=== PATIENT | male | born 1960 | race Hispanic/Latino ===

== ENCOUNTER 2018-10-18 18:04 | Inpatient (IN) | payer BC ==
[2018-10-18 19:22] LABS: Urine Blood 2+ (NEG); Urine Glucose NEGATIVE (NEG); Urine Protein TRACE (NEG); Urine Specific Gravity 1.025 (1.005-1.030); Urine pH 5.5 (5.0-7.0)
[2018-10-18] MEDS ORDERED: NA CHLORIDE 0.9% 1,000 ML ONE (19:26)
[2018-10-18] MEDS ORDERED: ONDANSETRON 4 MG/2 ML VIAL ONE (19:26)
[2018-10-18] MEDS ORDERED: MORPHINE 4 MG/ML SYR ONE (19:26)
[2018-10-18 19:33] LABS: Absolute Lymphocytes (CBC) 2.1 K/uL (0.7-4.9); Absolute Monocytes 1.6 K/uL (0.1-1.3); Absolute Neutrophil 10.9 K/uL (1.8-8.0); Basophils % 0.6 % (0-1.3); Eosinophils % 1.7 % (0-4.4); Hematocrit 44.4 % (39.6-49.0); Lymphocytes % 13.8 % (15.3-44.8); MCH 30.9 pg (27.0-35.0); MCV 92.9 fL (80-100); MPV 10.5 fL (7.6-11.3); Monocytes % 10.4 % (3.3-12.3); RBC Red Blood Cell Count 4.78 M/uL (4.33-5.43)
[2018-10-18] MEDS ORDERED: PIPER/TAZO/NS 3.375gm 3.375 GM/100 ML BAG ONE (19:55)
[2018-10-18 19:57] LABS: Albumin 4.1 g/dL (3.4-5.0); Bilirubin Direct 0.1 mg/dL (0-0.2); Bilirubin Total 0.5 mg/dL (0.2-1.0); Potassium 3.8 mmol/L (3.5-5.1); Protein, Total 7.8 g/dL (6.4-8.2)
--- NOTE | 2018-10-18 20:50 | RAD REPORT ---
EXAM DESCRIPTION: CT - Abdomen Pelvis W Contrast - 10/18/2018 8:27 pm CLINICAL HISTORY: Abdominal pain/right lower quadrant pain for 2 days COMPARISON: none. TECHNIQUE: Computed axial tomography of the abdomen pelvis was obtained. 100 cc Isovue-300 was admin istered intravenously. Oral contrast was not requested which limits evaluation of bowel. All CT scans are performed using dose optimization technique as appropriate and may include automated exposure control or mA/KV adjustment according to patient size. FINDINGS: The liver, spleen, pancreas, adrenal and kidneys appear unremarkable. Small right renal cy st An appendicolith is present within the appendix. The appendix is distended. A moderate stranding with in the adjacent fat is seen. Small amount of ascites is noted. The appendix extends inferiorly from t he cecum Right inguinal hernia contains fat IMPRESSION: Appendicitis.
--- NOTE | 2018-10-18 21:12 | EDPHYS ---
Physician Documentation [facility] Name: Sunny Germain Age: 58 yrs Sex: Male : 1960 Arrival Date: 10/18/2018 Time: 18:08 Bed 27 Private MD: ED Physician Rogelio Pedroza HPI: 10/18 19:35 This 58 yrs old Male presents to ER via Ambulatory with complaints of jr8 Abdominal Pain. 19:35 The patient presents with abdominal pain right lower quadrant. Onset: The jr8 symptoms/episode began/occurred acutely, 2 day(s) ago. The symptoms do not radiate. Associated signs and symptoms: none. The symptoms are described as stabbing. Modifying factors: The symptoms are alleviated by nothing, the symptoms are aggravated by movement. Severity of pain: At its worst the pain was moderate in the emergency department the pain is unchanged. The patient has not experienced similar symptoms in the past. The patient has not recently seen a physician. Historical: - Allergies: 18:33 No Known Allergies; aj - Home Meds: 18:33 Lopressor Oral [Active]; aj - PMHx: 18:33 Hypertension; aj - PSHx: 18:33 None; aj - Immunization history:: Adult Immunizations up to date. - Social history:: Smoking status: Patient uses tobacco products, smokes one pack cigarettes per day. Patient uses alcohol, on a daily basis. - Ebola Screening: : Patient negative for fever greater than or equal to 101.5 degrees Fahrenheit, and additional compatible Ebola Virus Disease symptoms Patient denies exposure to infectious person Patient denies travel to an Ebola-affected area in the 21 days before illness onset No symptoms or risks identified at this time. ROS: 19:35 Eyes: Negative for injury, pain, redness, and discharge, ENT: Negative for injury, jr8 pain, and discharge, Neck: Negative for injury, pain, and swelling, Cardiovascular: Negative for chest pain, palpitations, and edema, Respiratory: Negative for shortness of breath, cough, wheezing, and pleuritic chest pain, Back: Negative for injury and pain, MS/Extremity: Negative for injury and deformity, Skin: Negative for injury, rash, and discoloration, Neuro: Negative for headache, weakness, numbness, tingling, and seizure. 19:35 Abdomen/GI: Positive for abdominal pain, Negative for nausea, vomiting, and diarrhea, abdominal distension, anorexia, dysphagia, hematemesis, black/tarry stool, rectal pain, rectal bleeding, bowel incontinence, flatulence. Exam: 19:35 Eyes: Pupils equal round and reactive to light, extra-ocular motions intact. Lids and jr8 lashes normal. Conjunctiva and sclera are non-icteric and not injected. Cornea within normal limits. Periorbital areas with no swelling, redness, or edema. ENT: Nares patent. No nasal discharge, no septal abnormalities noted. Tympanic membranes are normal and external auditory canals are clear. Oropharynx with no redness, swelling, or masses, exudates, or evidence of obstruction, uvula midline. Mucous membranes moist. Neck: Trachea midline, no thyromegaly or masses palpated, and no cervical lymphadenopathy. Supple, full range of motion without nuchal rigidity, or vertebral point tenderness. No Meningismus. Cardiovascular: Regular rate and rhythm with a normal S1 and S2. No gallops, murmurs, or rubs. Normal PMI, no JVD. No pulse deficits. Respiratory: Lungs have equal breath sounds bilaterally, clear to auscultation and percussion. No rales, rhonchi or wheezes noted. No increased work of breathing, no retractions or nasal flaring. Back: No spinal tenderness. No costovertebral tenderness. Full range of motion. Skin: Warm, dry with normal turgor. Normal color with no rashes, no lesions, and no evidence of cellulitis. MS/ Extremity: Pulses equal, no cyanosis. Neurovascular intact. Full, normal range of motion. Neuro: Awake and alert, GCS 15, oriented to person, place, time, and situation. Cranial nerves II-XII grossly intact. Motor strength 5/5 in all extremities. Sensory grossly intact. Cerebellar exam normal. Normal gait. 19:35 Abdomen/GI: Inspection: abdomen appears normal, Bowel sounds: active, all quadrants, Palpation: soft, in all quadrants, moderate abdominal tenderness, in the right lower quadrant, mass, is not appreciated, rebound tenderness, is appreciated in the right lower quadrant, voluntary guarding, is elicited in the right lower quadrant, involuntary guarding, is not appreciated, no appreciated organomegaly, Indicators: McBurney's point is tender, Barlow's sign is negative, Rovsing's sign is positive, Psoas sign is positive, Liver: tenderness, is not appreciated. Vital Signs: 18:33 BP 126 / 84; Pulse 84; Resp 18; Temp 98.4; Pulse Ox 98% on R/A; Weight 90.72 kg; Height aj 5 ft. 9 in. (175.26 cm); 20:19 BP 141 / 73; Pulse 80; Resp 16; Pulse Ox 97% on R/A; rv 21:55 BP 138 / 62; Pulse 97; Resp 17; Pulse Ox 97% on R/A; rv 18:33 Body Mass Index 29.53 (90.72 kg, 175.26 cm) aj MDM: 18:52 Patient medically screened. [facility] 21:06 Data reviewed: vital signs, nurses notes, lab test result(s), radiologic studies, CT jr8 scan. Data interpreted: Pulse oximetry: on room air is 97 %. Interpretation: normal. Counseling: I had a detailed discussion with the patient and/or guardian regarding: the historical points, exam findings, and any diagnostic results supporting the discharge/admit diagnosis, lab results, radiology results, the need for further work-up and treatment in the hospital. Physician consultation: Derrick Gonzalez MD was called at 21:06, was contacted at 21:07, regarding admission, to the medical/surgical unit. consult, patient's condition, would like admission per Dr. Mildred Vizcarra MD. 10/18 19:10 Order name: Urine Dipstick--Ancillary (enter results); Complete Time: 19:28 ms 10/18 19:12 Order name: Basic Metabolic Panel; Complete Time: 20:31 [facility] 10/18 19:12 Order name: CBC with Diff; Complete Time: 19:35 [facility] 10/18 19:12 Order name: Creatinine for Radiology; Complete Time: 20:31 [facility] 10/18 19:12 Order name: Hepatic Function; Complete Time: 20:31 [facility] 10/18 19:12 Order name: Lipase; Complete Time: 20:31 [facility] 10/18 19:12 Order name: IV Saline Lock; Complete Time: 19:16 [facility] 10/18 19:12 Order name: CT Abd/Pelvis - W/Contrast; Complete Time: 20:55 [facility] 10/18 21:15 Order name: CONS Physician Consult EDWA 10/18 19:12 Order name: Labs collected and sent; Complete Time: 19:16 jr8 10/18 21:14 Order name: EKG - Nurse/Tech; Complete Time: 21:38 jr8 Administered Medications: 17:20 Drug: morphine 4 mg Route: IVP; Site: right antecubital; rv 19:58 Follow up: Response: Pain is decreased rv 19:20 Drug: Zofran 4 mg Route: IVP; Site: right antecubital; rv 19:57 Follow up: Response: No adverse reaction rv 19:20 Drug: NS 0.9% 1000 ml Route: IV; Rate: 1000 ml; Site: right antecubital; rv 21:38 Follow up: IV Status: Completed infusion rv 19:57 Drug: Zosyn 3.375 grams Route: IVPB; Infused Over: 60 mins; Site: right antecubital; rv 21:38 Follow up: IV Status: Completed infusion rv 21:15 Drug: Dilaudid 1 mg Route: IVP; Site: right antecubital; rv 22:01 Follow up: Response: Pain is decreased rv Disposition: 10/19 07:25 Co-signature as Attending Physician, Rogelio Pedroza MD I agree with the assessment and kdr plan of care. Disposition: 10/18/18 21:11 Hospitalization ordered by Mildred Vizcarra for Inpatient Admission. Preliminary diagnosis is Acute appendicitis. - Bed requested for Telemetry/MedSurg (Inpatient). - Status is Inpatient Admission. rv - Condition is Stable. - Problem is new. - Symptoms have improved. UTI on Admission? No Signatures: Dispatcher [employer] EDWA Kaylene Obrien RN RN kl Myers, Amanda, RN RN aj Rittger, Kevin, MD MD kdr Roszak, Josh, PA PA jr8 Pasquale Short RN RN rv Corrections: (The following items were deleted from the chart) 10/18 21:42 21:11 Hospitalization Ordered by Mildred Vizcarra MD for Inpatient Admission. Preliminary diagnosis is Acute appendicitis. Bed requested for Telemetry/MedSurg (Inpatient). Status is Inpatient Admission. Condition is Stable. Problem is new. Symptoms have improved. UTI on Admission? No. jr8 22:33 21:42 10/18/2018 21:11 Hospitalization Ordered by Mildred Vizcarra MD for Inpatient rv Admission. Preliminary diagnosis is Acute appendicitis. Bed requested for Telemetry/MedSurg (Inpatient). Status is Inpatient Admission. Condition is Stable. Problem is new. Symptoms have improved. UTI on Admission? No. kl
--- NOTE | 2018-10-18 21:12 | ER ---
Nurse's Notes [facility] Name: Sunny Germain Age: 58 yrs Sex: Male : 1960 Arrival Date: 10/18/2018 Time: 18:08 Bed 27 Private MD: Diagnosis: Acute appendicitis Presentation: 10/18 18:32 Presenting complaint: Patient states: RLQ abdominal pain for 2 days. Transition of aj care: patient was not received from another setting of care. Onset of symptoms was October 16, 2018. Risk Assessment: Do you want to hurt yourself or someone else? Patient reports no desire to harm self or others. Initial Sepsis Screen: Does the patient meet any 2 criteria? No. Patient's initial sepsis screen is negative. Does the patient have a suspected source of infection? No. Patient's initial sepsis screen is negative. Care prior to arrival: None. 18:32 Method Of Arrival: Ambulatory 18:32 Acuity: BIANCA 3 aj Triage Assessment: 18:33 General: Appears in no apparent distress. uncomfortable, Behavior is calm, cooperative, aj appropriate for age. Pain: Complains of pain in right lower quadrant. Neuro: Level of Consciousness is awake, alert, obeys commands, Oriented to person, place, time, situation, Appropriate for age. Respiratory: Airway is patent Respiratory effort is even, unlabored, Respiratory pattern is regular, symmetrical. GI: Reports lower abdominal pain. Derm: Skin is intact, is healthy with good turgor, Skin is dusky. Historical: - Allergies: 18:33 No Known Allergies; aj - Home Meds: 18:33 Lopressor Oral [Active]; aj - PMHx: 18:33 Hypertension; aj - PSHx: 18:33 None; aj - Immunization history:: Adult Immunizations up to date. - Social history:: Smoking status: Patient uses tobacco products, smokes one pack cigarettes per day. Patient uses alcohol, on a daily basis. - Ebola Screening: : Patient negative for fever greater than or equal to 101.5 degrees Fahrenheit, and additional compatible Ebola Virus Disease symptoms Patient denies exposure to infectious person Patient denies travel to an Ebola-affected area in the 21 days before illness onset No symptoms or risks identified at this time. Screenin:56 Abuse screen: Denies threats or abuse. Denies injuries from another. Nutritional rv screening: No deficits noted. Tuberculosis screening: No symptoms or risk factors identified. Fall Risk None identified. Assessment: 18:54 General: Appears in no apparent distress. uncomfortable, Behavior is calm, cooperative. rv Pain: Complains of pain in abdomen and right lower quadrant. Neuro: Level of Consciousness is awake, alert, obeys commands, Oriented to person, place, time, situation. Cardiovascular: Capillary refill < 3 seconds. Respiratory: Airway is patent. GI: Bowel sounds present X 4 quads. Abdomen is tender to palpation in right lower quadrant. : No signs and/or symptoms were reported regarding the genitourinary system. EENT: No signs and/or symptoms were reported regarding the EENT system. Derm: Skin is intact. Musculoskeletal: No signs and/or symptoms reported regarding the musculoskeletal system. 20:19 Reassessment: patient taken to CT scan. rv 21:56 Reassessment: Patient appears in no apparent distress at this time. rv Vital Signs: 18:33 BP 126 / 84; Pulse 84; Resp 18; Temp 98.4; Pulse Ox 98% on R/A; Weight 90.72 kg; Height aj 5 ft. 9 in. (175.26 cm); 20:19 BP 141 / 73; Pulse 80; Resp 16; Pulse Ox 97% on R/A; rv 21:55 BP 138 / 62; Pulse 97; Resp 17; Pulse Ox 97% on R/A; rv 18:33 Body Mass Index 29.53 (90.72 kg, 175.26 cm) ED Course: 18:08 Patient arrived in ED. mr 18:33 Triage completed. aj 18:33 Arm band placed on left wrist. Patient placed in an exam room. aj 18:40 Inserted saline lock: 20 gauge in right forearm, using aseptic technique. Blood rv collected. 18:52 Nick North PA is PHCP. jr8 18:52 Rogelio Pedroza MD is Attending Physician. [facility] 18:56 Patient has correct armband on for positive identification. Bed in low position. Call rv light in reach. Side rails up X 1. Pulse ox on. NIBP on. 19:21 Radiology exam delayed due to lab results not completed at this time. (BUN/Creatinine). 2 19:29 Inserted saline lock: 20 gauge in right antecubital area, using aseptic technique. rv 19:31 Radiology exam delayed due to lab results not completed at this time. (BUN/Creatinine). vm2 19:56 Radiology exam delayed due to lab results not completed at this time. (BUN/Creatinine). nj 20:[address] via wheelchair. vm2 20:26 CT completed. Patient tolerated procedure well. Patient moved back from CT. nj 20:28 CT Abd/Pelvis - W/Contrast In Process Unspecified. EDMS 21:11 Mildred Vizcarra MD is Hospitalizing Provider. jr8 22:02 No provider procedures requiring assistance completed. Patient admitted, IV remains in rv place. intact. Administered Medications: 17:20 Drug: morphine 4 mg Route: IVP; Site: right antecubital; rv 19:58 Follow up: Response: Pain is decreased rv 19:20 Drug: Zofran 4 mg Route: IVP; Site: right antecubital; rv 19:57 Follow up: Response: No adverse reaction rv 19:20 Drug: NS 0.9% 1000 ml Route: IV; Rate: 1000 ml; Site: right antecubital; rv 21:38 Follow up: IV Status: Completed infusion rv 19:57 Drug: Zosyn 3.375 grams Route: IVPB; Infused Over: 60 mins; Site: right antecubital; rv 21:38 Follow up: IV Status: Completed infusion rv 21:15 Drug: Dilaudid 1 mg Route: IVP; Site: right antecubital; rv 22:01 Follow up: Response: Pain is decreased rv Outcome: 21:11 Decision to Hospitalize by Provider. jr8 22:02 Admitted to Tele accompanied by [facility], via wheelchair, room 413, with chart, Report rv called to JOI VIEIRA 22:02 Condition: stable 22:02 Instructed on the need for admit. 22:33 Patient left the ED. rv Signatures: Dispatcher [employer] EDMS Arely Hicks, RN Michaelle Yu Josh, PA PA jr8 Ward Diaz Victoria 2 Pasquale Short RN RN rv
[2018-10-18] MEDS ORDERED: HYDROMORPHONE HCL 2 MG/ML inj ONE (21:19)
[2018-10-18] MEDS ORDERED: ACETAMINOPHEN 500 MG TAB PO PRN (21:36)
[2018-10-18] MEDS ORDERED: ONDANSETRON 4 MG/2 ML VIAL IV PRN (21:36)
[2018-10-18] MEDS: NA CHLORIDE 0.9% 1,000 ML IV SCH (23:23)
[2018-10-18] MEDS ORDERED: NA CHLORIDE 0.9% 0 ML ONE (23:35)
[2018-10-18] MEDS ORDERED: CEFAZOLIN 1GM (PREMIX IV) 1 GM/50 ML BAG ONE (23:44)
[2018-10-19] MEDS: HYDROMORPHONE HCL 1 MG/ML INJ IV PRN ×2 (02:09→05:45)
[2018-10-19 04:55] VITALS: BMI 29.2
[2018-10-19] MEDS: CEFAZOLIN/NS 1gm 1 GM/50 ML BAG IVPB SCH ×2 (06:00)
[2018-10-19] MEDS ORDERED: CEFAZOLIN 1GM (PREMIX IV) 1 GM/50 ML BAG ONE (06:01)
--- NOTE | 2018-10-19 06:39 | P.HP ---
Certification for Inpatient Patient admitted to: Inpatient With expected LOS: >2 Midnights Patient will require the following post-hospital care: None Practitioner: I am a practitioner with admitting privileges, knowledge of patient current condition, hospital course, and medical plan of care. Services: Services provided to patient in accordance with Admission requirements found in Title 42 Section 412.3 of the Code of Federal Regulations Patient History Date of Service: 10/18/18 Reason for admission: Abdominal pain History of Present Illness: Patient is a 58yo who was admitted to the hospital with abdominal pain. Patient' s pain was in the right lower quadrant. Patient had guarding and rebound tenderness. This is been going on for the last 24 hr. In the ER his workup revealed appendicitis. Patient will be started on antibiotics and medically is stable for surgical intervention. He does not have any hypertension or diabetes. He has no heart disease. He is low risk for cardiopulmonary complications. Allergies No Known Allergies Allergy (Unverified 10/18/18 23:09) - Past Medical/Surgical History Has patient received pneumonia vaccine in the past: No Diabetic: No -: depression -: BPH Past Surgical History: Patient denies surgical history - Family History Father Medical History: Heart disease Mother History Unknown: Yes Notes: no medical hx - Social History Smoking Status: Current every day smoker Alcohol use: Yes CD- Drugs: No Caffeine use: Yes Place of Residence: Home Review of Systems 10-point ROS is otherwise unremarkable Physical Examination - Vital Signs Temperature: 98 F Blood Pressure: 137/68 Pulse: 100 Respirations: 20 Pulse Ox (%): 98 - Physical Exam General: Alert, In no apparent distress, Oriented x3 HEENT: Atraumatic, PERRLA, Mucous membr. moist/pink, EOMI, Sclerae nonicteric Neck: Supple, 2+ carotid pulse no bruit, No LAD, Without JVD or thyroid abnormality Respiratory: Clear to auscultation bilaterally, Normal air movement Cardiovascular: Regular rate/rhythm, Normal S1 S2, No murmurs Gastrointestinal: Normal bowel sounds, Soft and benign, Non-distended, Tenderness, Rebound, Guarding Musculoskeletal: No clubbing, No swelling, No tenderness Integumentary: No rashes Neurological: Normal gait, Normal speech, Normal strength at 5/5 x4 extr, Normal tone, Sensation intact, Cranial nerves 3-12 intact, Normal affect Lymphatics: No axilla or inguinal lymphadenopathy - Studies Laboratory Data (last 24 hrs) 10/18/18 18:40: Creatinine 1.30 10/18/18 18:40: WBC 14.9 H, Hgb 14.8, Hct 44.4, Plt Count 164 10/18/18 18:40: Sodium 136, Potassium 3.8, BUN 21 H, Creatinine 1.30, Glucose 115 H, Total Bilirubin 0.5, AST 18, ALT 27, Alkaline Phosphatase 93, Lipase 116 Assessment & Plan - Problems (Diagnosis) (1) Appendicitis Current Visit: Yes Status: Acute - Plan PLAN: 1. IV antibiotics 2. IV hydration 3. Pain control 4. NPO 5. Surgery consultation 6. DVT prophylaxis - Advance Directives Does patient have a Living Will: No Does patient have a Durable POA for Healthcare: No - Code Status/Comfort Care Code Status Assessed: Yes Code Status: Full Code Critical Care: No Time Spent Managing PTS Care (In Minutes): 50
[2018-10-19 06:49] LABS: Protime INR 1.13
[2018-10-19 06:50] LABS: Absolute Lymphocytes (CBC) 1.3 K/uL (0.7-4.9); Absolute Neutrophil 13.2 K/uL (1.8-8.0); Basophils % 0.3 % (0-1.3); Eosinophils % 0.2 % (0-4.4); Lymphocytes % 8.4 % (15.3-44.8); MCH 31.4 pg (27.0-35.0); MCV 92.1 fL (80-100); MPV 10.6 fL (7.6-11.3); Monocytes % 6.2 % (3.3-12.3); RBC Red Blood Cell Count 4.45 M/uL (4.33-5.43)
[2018-10-19 06:55] LABS: Albumin 3.2 g/dL (3.4-5.0); Bilirubin Total 1.5 mg/dL (0.2-1.0); Magnesium 2.2 mg/dL (1.8-2.4); Potassium 3.6 mmol/L (3.5-5.1); Protein, Total 6.6 g/dL (6.4-8.2)
[2018-10-19] MEDS ORDERED: FENTANYL CITR 100 MCG/2 ML ONE ×2 (07:11→08:07)
[2018-10-19] MEDS ORDERED: MIDAZOLAM HCL 2 MG/2 ML INJ ONE (07:11)
[2018-10-19] MEDS ORDERED: PROPOFOL 200 MG/20 ML VIAL IV ONE (07:11)
[2018-10-19] MEDS ORDERED: ROCURONIUM 50 MG/5 ML VIAL IV ONE (07:12)
[2018-10-19] MEDS ORDERED: LIDOCAINE 1% MPF 5 ML VIAL ONE (07:12)
--- NOTE | 2018-10-19 07:20 | EKG ---
Test Date: 2018-10-18 Test Time: 21:24:45 Coronary Care Unit Nurse: ANA MEASUREMENT RESULTS: Intervals: Rate: 106 VA: 130 QRSD: 80 QT: 318 QTc: 422 [place]: P: 64 VA: 130 QRS: 59 T: -15 INTERPRETIVE STATEMENTS: Sinus tachycardia T wave abnormality, consider inferior ischemia Abnormal ECG No previous ECG available for comparison Electronically Signed On 10-19-18 07:19:07 [employer]CH[employer]ISING [employer]AD by Yan Guerrero
[2018-10-19] MEDS ORDERED: Ringers Lactate 1,000 ML IV ONE (07:31)
[2018-10-19] MEDS ORDERED: GLYCOPYRROLATE 0.2 MG/ML SYR ONE (07:59)
[2018-10-19] MEDS ORDERED: KETOROLAC 30 MG/ML INJ ONE (07:59)
[2018-10-19] MEDS ORDERED: INFLUENZA VACCINE (for 3y+) 0.5 ML DOSE IMVAC ONE (08:00)
[2018-10-19] MEDS ORDERED: PIPER/TAZO/NS 3.375gm 3.375 GM/100 ML BAG IV ONE (08:00)
[2018-10-19] MEDS ORDERED: ONDANSETRON HCL 40 MG/20 ML VIAL ONE (08:04)
[2018-10-19] MEDS ORDERED: NEOSTIGMINE 1 MG/ML -5 ML SYRINGE ONE (08:04)
--- NOTE | 2018-10-19 08:31 | P.OP ---
Preoperative diagnosis: Acute Appendicitis Postoperative diagnosis: same with perforation Primary procedure: Lap Appy Anesthesia: Gen Estimated blood loss: min Specimen: appy, appendicolith Findings: as above Complications: None Drain(s): DAMIEN drain Transferred to: Recovery Room Condition: Good
[2018-10-19] MEDS ORDERED: KCL 20 MEQ/100 mL IVPB 20 MEQ/100 ML BAG IV SCH (09:00)
[2018-10-19] MEDS ORDERED: ONDANSETRON 4 MG/2 ML VIAL IV PRN (09:37)
[2018-10-19] MEDS ORDERED: HYDROMORPHONE HCL 1 MG/ML INJ IV PRN (09:37)
[2018-10-19] MEDS ORDERED: POTASSIUM 25 MEQ EFFERV TAB PO ONE (10:00)
[2018-10-19] MEDS: METRONIDAZOLE 500mg IVPB 500 MG/100 ML BAG IV SCH ×2 (10:15→16:46)
[2018-10-19] MEDS: NA CHLORIDE 0.9% 1,000 ML IV SCH ×2 (11:20→16:48)
--- NOTE | 2018-10-19 12:04 | PREOPCON ---
Date of Consultation: 10/18/2018 Reason: Abdominal pain. History Of Present Illness: The patient is a 58-year-old gentleman who states that for the last 3 da ys, he has had increasing diffuse abdominal pain localized to the right lower quadrant associated wit h nausea and vomiting. No diarrhea or constipation. No blood in his stool. No dysuria or hematuria . No sore throat, runny nose, cough, headaches, or dizziness. No chest pain. No fever or chills. Review of Systems: Otherwise, unremarkable. Past Medical History: Hypertension. Past Surgical History: Negative. Allergies: NO ALLERGIES. Social History: He does smoke and drink. He was counseled. Family History: Noncontributory. Physical Examination: Vital Signs: Currently are stable. His temperature was 99.3, currently it is 98. General: He is awake, alert, and oriented x3. Head and Neck: Cranial nerves 2 through 12 are grossly within normal limits. No neck masses. No JV D. The throat clear. Neck is supple. Chest: Clear. Heart: S1, S2. Abdomen: Soft, positive Rovsing sign, positive right lower quadrant tenderness with rebound and mini mal rigidity. Extremities: Adequately perfused. Nontender. Neuro: Nonfocal. Laboratory Data: White count on admission was 14.9 last night, today it is 15.6, with a left shift. INR is 1.13. Laboratory data reviewed. CT of the abdomen and pelvis reviewed and shows appendicoli th within the appendix. The appendix is distended. Some stranding seen. There is small amount of a scites noted and right inguinal hernia containing fat. Assessment: Acute appendicitis. Plan: Admit, n.p.o., IV fluid, IV antibiotic, to the OR for laparoscopic appendectomy, possible open . The patient via a grants and contracts assistant understands the risks, benefits, and alternatives and agrees to proce dure. /MODL Voice ID: [id number] Report ID: [id number]
[2018-10-19] MEDS: HYDROCODONE/APAP 7.5/325 MG TAB PO PRN ×3 (12:44→21:01)
--- NOTE | 2018-10-19 13:37 | OP ---
Date of Procedure: 10/19/2018 Surgeon: Derrick Gonzalez MD Preoperative Diagnosis: Acute appendicitis. Postoperative Diagnoses: Acute perforated appendicitis with an appendicolith. Procedure Performed: Laparoscopic appendectomy. Estimated Blood Loss: Minimal. Specimen: Appendix and appendicolith. Findings: Above. Anesthesia: General. Complications: None. Drains: DAMIEN #10 flat. Disposition: The patient tolerated the procedure in stable condition and taken to Recovery in good g eneral condition. Procedure In Detail: The patient was brought to the OR and placed in supine position. General anest hesia was begun. The patient was prepped and draped in usual sterile fashion. Marcaine 0.5% was inf iltrated locally. A 15-blade was used to make a 1.5 cm supraumbilical midline incision. Subcutaneou s tissue divided. The fascia was identified and divided. A #1 Vicryl stay suture was placed. Perit callahan cavity was entered with sharp and blunt dissection. A 12-mm trocar was placed into the periton eal cavity under direct vision. Pneumoperitoneum was established. A 5-mm trocars placed, 1 in the l eft lower quadrant, 1 in the suprapubic region. Laparoscopy revealed fibrinous exudate in the right lower quadrant with attachment to the peritoneal surface accounting for his clinical findings. He goodwin d some minimal drainage in that area as well as the pelvis, this was aspirated. Once adhesions were taken down, it was obvious that the appendix had ruptured in the middle of it, and there was an appen dicolith. They are separate and next to the appendix. Base of the appendix and mesoappendix near th e cecum identified. Endo-BECKY stapling device was used to divide both structures. Appendix and appen dicolith removed through the EndoCatch bag, and then right lower quadrant examined and irrigated, eff luent clear. No evidence of bleeding or bowel injury appreciated. However, there was a lot of infla mmatory tissue that was present in the right lower quadrant where the appendix was, and so I opted to place a #10 flat DAMIEN drain, and secured with 3-0 nylon and the drain went from the pelvis to the righ t lower quadrant. Subsequently, all trocars were removed under direct vision. Stay sutures were tie d to each other across the fascial defect. Subcutaneous wounds were irrigated. Bleeding controlled with cautery. A 3-0 chromic used to approximate the subcutaneous tissue. Rogelio were used to close the skin. Sterile dressing was applied. The patient was awakened and taken to Recovery in good gen eral condition. /MODEdgar Voice ID: [id number] Report ID: [id number]
[2018-10-19] MEDS: PIPER/TAZO/NS 3.375gm 3.375 GM/100 ML BAG IVPB SCH (16:47)
--- NOTE | 2018-10-19 16:49 | P.PN ---
Subjective Date of Service: 10/19/18 Primary Care Provider: None Chief Complaint: Abdominal pain Subjective: Other (Patient is post surgery) Physical Examination - Vital Signs Temperature: 98.4 F Blood Pressure: 111/43 Pulse: 69 Respirations: 16 Pulse Ox (%): 98 - Physical Exam General: Alert, In no apparent distress, Cooperative HEENT: Atraumatic Neck: Supple Respiratory: Clear to auscultation bilaterally, Normal air movement Cardiovascular: Normal pulses, Regular rate/rhythm Gastrointestinal: Hypoactive, Non-distended, Other (post op changes) Musculoskeletal: No erythema, No tenderness, No warmth Integumentary: No erythema, No warmth, No cyanosis Neurological: Normal speech, Normal strength at 5/5 x4 extr, Normal tone, Normal affect - Studies Laboratory Data (last 24 hrs) 10/18/18 18:40: Creatinine 1.30 10/18/18 18:40: WBC 14.9 H, Hgb 14.8, Hct 44.4, Plt Count 164 10/18/18 18:40: Sodium 136, Potassium 3.8, BUN 21 H, Creatinine 1.30, Glucose 115 H, Total Bilirubin 0.5, AST 18, ALT 27, Alkaline Phosphatase 93, Lipase 116 Medications List Reviewed: Yes Assessment & Plan Discharge Plan: Home Plan to discharge in: Greater than 2 days Physician Review Additional Text: Impression: Abdominal pain secondary to acute perforated appendicitis with appendicolith, status post laparoscopic appendectomy Renal insufficiency secondary to dehydration Plan: Abdominal pain secondary to acute perforated appendicitis with appendicolith, status post laparoscopic appendectomy: Patient had surgery earlier today. Case discussed at length with surgery. Will need to monitor for ileus postoperatively. Will need to go slow with transition to oral intake. Will need to monitor for abdominal distention if present patient may require an NG tube. Will continue with IV fluids. Due to the severity of the findings the patient will likely need to be in the hospital over the next 4-5 days. Will continue to follow along with surgery. Renal insufficiency secondary to dehydration: Continue IV fluids. Will monitor adjust closely. Time Spent Managing Pts Care (In Minutes): 55
[2018-10-20] MEDS: NA CHLORIDE 0.9% 1,000 ML IV SCH ×2 (00:40→18:15)
[2018-10-20] MEDS: METRONIDAZOLE 500mg IVPB 500 MG/100 ML BAG IV SCH ×3 (01:29→18:16)
[2018-10-20] MEDS: PIPER/TAZO/NS 3.375gm 3.375 GM/100 ML BAG IVPB SCH ×3 (01:29→18:24)
[2018-10-20] MEDS: HYDROCODONE/APAP 7.5/325 MG TAB PO PRN ×4 (01:30→18:28)
[2018-10-20 06:15] LABS: Absolute Lymphocytes (CBC) 1.2 K/uL (0.7-4.9); Absolute Monocytes 1.1 K/uL (0.1-1.3); Absolute Neutrophil 11.5 K/uL (1.8-8.0); Basophils % 0.3 % (0-1.3); Eosinophils % 1.2 % (0-4.4); Hematocrit 40.6 % (39.6-49.0); Lymphocytes % 8.6 % (15.3-44.8); MCH 31.4 pg (27.0-35.0); MCV 91.9 fL (80-100); MPV 9.9 fL (7.6-11.3); Monocytes % 7.7 % (3.3-12.3); RBC Red Blood Cell Count 4.42 M/uL (4.33-5.43)
[2018-10-20 06:25] LABS: BUN Blood Urea Nitrogen 10 mg/dL (7-18); Bicarbonate 25 mmol/L (21-32); Glucose Level 100 mg/dL (74-106); Potassium 3.6 mmol/L (3.5-5.1); Sodium Level 138 mmol/L (136-145)
[2018-10-20] MEDS ORDERED: POTASSIUM 25 MEQ EFFERV TAB PO ONE (09:00)
--- NOTE | 2018-10-20 10:10 | P.PN ---
Subjective Date of Service: 10/20/18 Primary Care Provider: None Chief Complaint: Abdominal pain Subjective: Improving (no issues, + gas, no bm, no nausea, pain improving, mild distention) Physical Examination - Vital Signs Temperature: 97.8 F Blood Pressure: 148/69 Pulse: 81 Respirations: 20 Pulse Ox (%): 96 - Physical Exam General: Alert, In no apparent distress, Cooperative Gastrointestinal: Other (soft, moderate distention, DAMIEN serous, dressings minimal serosanguanous staining, moderate approrpiate TTP) - Studies Medications List Reviewed: Yes Assessment And Plan - Plan - ambulate with assist - advance to soft diet, - continue antibiotics and medical management - keep DAMIEN for now - serial exams Physician Review Additional Text: Impression: Abdominal pain secondary to acute perforated appendicitis with appendicolith, status post laparoscopic appendectomy Renal insufficiency secondary to dehydration Plan: Abdominal pain secondary to acute perforated appendicitis with appendicolith, status post laparoscopic appendectomy: Patient had surgery earlier today. Case discussed at length with surgery. Will need to monitor for ileus postoperatively. Will need to go slow with transition to oral intake. Will need to monitor for abdominal distention if present patient may require an NG tube. Will continue with IV fluids. Due to the severity of the findings the patient will likely need to be in the hospital over the next 4-5 days. Will continue to follow along with surgery. Renal insufficiency secondary to dehydration: Continue IV fluids. Will monitor adjust closely.
--- NOTE | 2018-10-20 14:43 | P.PN ---
Subjective Date of Service: 10/20/18 Primary Care Provider: None Chief Complaint: Abdominal pain Subjective: Improving (No BM. No passage of air.) Physical Examination - Vital Signs Temperature: 98.2 F Blood Pressure: 149/72 Pulse: 78 Respirations: 20 Pulse Ox (%): 96 - Physical Exam General: Alert, In no apparent distress, Oriented x3, Cooperative HEENT: Atraumatic Neck: Supple Respiratory: Clear to auscultation bilaterally, Normal air movement Cardiovascular: Normal pulses, Regular rate/rhythm Gastrointestinal: Hypoactive, Non-distended, No masses, No rebound, No guarding , Tenderness (mild tenderness) Musculoskeletal: No erythema, No tenderness, No warmth Integumentary: No tenderness/swelling, No erythema, No warmth, No cyanosis Neurological: Normal speech, Normal strength at 5/5 x4 extr, Normal tone, Normal affect - Studies Medications List Reviewed: Yes Assessment & Plan Discharge Plan: Home Plan to discharge in: 72 Hours Physician Review Additional Text: Impression: Abdominal pain secondary to acute perforated appendicitis with appendicolith, status post laparoscopic appendectomy Renal insufficiency secondary to dehydration Plan: Abdominal pain secondary to acute perforated appendicitis with appendicolith, status post laparoscopic appendectomy: Patient doing better. Continue with pain medication. Spoke to Surgery. Will continue with full liquid until he is able to passed gas and stool. Encourage ambulation. Will continue with DVT prophylaxis. Will monitor closely. Renal insufficiency secondary to dehydration: Continue IV fluids. Will monitor adjust closely. Time Spent Managing Pts Care (In Minutes): 55
[2018-10-20] MEDS: ENOXAPARIN 40 MG/0.4 ML SQ SCH (18:19)
[2018-10-21] MEDS: PIPER/TAZO/NS 3.375gm 3.375 GM/100 ML BAG IVPB SCH ×3 (00:21→17:06)
[2018-10-21] MEDS: METRONIDAZOLE 500mg IVPB 500 MG/100 ML BAG IV SCH ×3 (00:22→17:05)
[2018-10-21] MEDS: HYDROCODONE/APAP 7.5/325 MG TAB PO PRN ×4 (00:22→21:36)
[2018-10-21] MEDS: NA CHLORIDE 0.9% 1,000 ML IV SCH ×2 (03:20→17:05)
[2018-10-21 06:26] LABS: Absolute Monocytes 1.2 K/uL (0.1-1.3); Absolute Neutrophil 11.1 K/uL (1.8-8.0); Basophils % 0.5 % (0-1.3); Eosinophils % 1.9 % (0-4.4); Lymphocytes % 7.3 % (15.3-44.8); MCH 31.2 pg (27.0-35.0); MCV 91.8 fL (80-100); MPV 9.7 fL (7.6-11.3); Monocytes % 8.6 % (3.3-12.3); RBC Red Blood Cell Count 4.25 M/uL (4.33-5.43)
[2018-10-21 06:44] LABS: BUN Blood Urea Nitrogen 9 mg/dL (7-18); Bicarbonate 26 mmol/L (21-32); Glucose Level 129 mg/dL (74-106); Magnesium 2.3 mg/dL (1.8-2.4); Potassium 3.7 mmol/L (3.5-5.1); Sodium Level 135 mmol/L (136-145)
[2018-10-21] MEDS: HOME MED 1 EA UNK (Mirabegron [Myrbetriq] 1 TAB) PO SCH (09:00)
[2018-10-21] MEDS ORDERED: POTASSIUM CL SA 10 MEQ TAB PO ONE (09:00)
[2018-10-21] MEDS: TAMSULOSIN 0.4 MG SR CAP PO SCH (09:50)
[2018-10-21] MEDS: LOSARTAN POTASSIUM 50 MG TABLET PO SCH (09:50)
[2018-10-21] MEDS: FINASTERIDE 5 MG TAB PO SCH (09:51)
--- NOTE | 2018-10-21 15:25 | P.PN ---
Subjective Date of Service: 10/21/18 Primary Care Provider: None Chief Complaint: Abdominal pain Subjective: Improving (Pain improved. Still no passage of gas through rectum. Patient is having some burping. Patient tolerating full liquid diet.) Physical Examination - Vital Signs Temperature: 98.2 F Blood Pressure: 131/71 Pulse: 72 Respirations: 16 Pulse Ox (%): 95 - Physical Exam General: Alert, In no apparent distress, Oriented x3, Cooperative HEENT: Atraumatic Neck: Supple Respiratory: Clear to auscultation bilaterally, Normal air movement Cardiovascular: Normal pulses, Regular rate/rhythm Gastrointestinal: Hypoactive, Soft and benign, Non-distended, No masses, No rebound, No guarding, Tenderness (Less tenderness to the abdomen noted, no distention noted.) Neurological: Normal speech, Normal strength at 5/5 x4 extr, Normal tone, Normal affect - Studies Medications List Reviewed: Yes Assessment & Plan Discharge Plan: Home Plan to discharge in: Greater than 2 days Physician Review Additional Text: Impression: Abdominal pain secondary to acute perforated appendicitis with appendicolith, status post laparoscopic appendectomy, post op day 2 Renal insufficiency secondary to dehydration Plan: Abdominal pain secondary to acute perforated appendicitis with appendicolith, status post laparoscopic appendectomy, post op day 2: Patient doing well this time. Pain seems to be well controlled. Improvement in white count. Still no passage of gas through the rectum. Patient is burping and tolerating full liquid diet. Spoke with surgery. Continue with current full liquid diet. Encourage ambulation. Encourage incentive spirometer. Continue with DVT prophylaxis. Continue with IV antibiotic therapy. Surgery will return on Monday to evaluate patient. Once the patient is having passage of gas through the rectum then will consider GI soft diet. I will turn the service over to Dr. Mcallister tomorrow. I will go over the plan of care with her. Renal insufficiency secondary to dehydration: Continue IV fluids. Will monitor adjust closely. Time Spent Managing Pts Care (In Minutes): 55
[2018-10-21] MEDS: ENOXAPARIN 40 MG/0.4 ML SQ SCH (17:05)
[2018-10-22] MEDS: PIPER/TAZO/NS 3.375gm 3.375 GM/100 ML BAG IVPB SCH ×3 (00:05→16:06)
[2018-10-22] MEDS: METRONIDAZOLE 500mg IVPB 500 MG/100 ML BAG IV SCH ×3 (00:05→16:06)
[2018-10-22 04:50] LABS: Absolute Lymphocytes (CBC) 1.3 K/uL (0.7-4.9); Absolute Monocytes 0.9 K/uL (0.1-1.3); Absolute Neutrophil 6.7 K/uL (1.8-8.0); Eosinophils % 5.9 % (0-4.4); Hematocrit 37.2 % (39.6-49.0); Lymphocytes % 13.3 % (15.3-44.8); MCH 31.5 pg (27.0-35.0); MCV 92.7 fL (80-100); MPV 10.3 fL (7.6-11.3); Monocytes % 9.6 % (3.3-12.3); RBC Red Blood Cell Count 4.01 M/uL (4.33-5.43)
[2018-10-22 05:10] LABS: Magnesium 2.2 mg/dL (1.8-2.4); Potassium 3.9 mmol/L (3.5-5.1)
[2018-10-22] MEDS: HYDROCODONE/APAP 7.5/325 MG TAB PO PRN ×2 (05:14→22:22)
[2018-10-22] MEDS: NA CHLORIDE 0.9% 1,000 ML IV SCH (05:15)
[2018-10-22] MEDS ORDERED: POTASSIUM CL SA 10 MEQ TAB PO ONE (06:00)
[2018-10-22] MEDS: LOSARTAN POTASSIUM 50 MG TABLET PO SCH (08:11)
[2018-10-22] MEDS: FINASTERIDE 5 MG TAB PO SCH (08:12)
[2018-10-22] MEDS: TAMSULOSIN 0.4 MG SR CAP PO SCH (08:12)
[2018-10-22] MEDS: HOME MED 1 EA UNK (Mirabegron [Myrbetriq] 1 TAB) PO SCH (08:12)
--- NOTE | 2018-10-22 15:19 | P.PN ---
Subjective Date of Service: 10/22/18 Primary Care Provider: None Chief Complaint: Abdominal pain Patient seen and examined at bedside with RN. Chart reviewed. Case discussed with general surgery. Currently patient is passing gas and had a bowel movement this morning. Diet has been advanced to a GI soft diet. No complaints to offer overnight Review of Systems 10-point ROS is otherwise unremarkable Physical Examination - Vital Signs Temperature: 98.1 F Blood Pressure: 127/69 Pulse: 79 Respirations: 18 Pulse Ox (%): 94 - Physical Exam General: Alert, In no apparent distress HEENT: Atraumatic, PERRLA, EOMI Neck: Supple, JVD not distended Respiratory: Clear to auscultation bilaterally, Normal air movement Cardiovascular: Regular rate/rhythm, Normal S1 S2 Gastrointestinal: Normal bowel sounds, No tenderness Musculoskeletal: No tenderness Integumentary: No rashes Neurological: Normal speech, Normal tone, Normal affect Lymphatics: No axilla or inguinal lymphadenopathy - Studies Medications List Reviewed: Yes Assessment And Plan - Current Problems (Diagnosis) (1) Appendicitis Onset Date: 10/19/18 Current Visit: Yes Status: Acute Plan: Acute appendicitis with perforated appendix and peritonitis -status post lap appendectomy POD 3. -currently on IV Cipro and Flagyl -general surgery has been consulted. Appreciated recommendations at this time. -continue IV antibiotics for another 24 hr -advanced to a GI soft diet today -if tolerating diet and doing well in next 24-48 hr consider discharge -pain management adequate at this time -patient is ambulating, tolerating diet, passing Flatulence at this time as well (2) ARF (acute renal failure) Current Visit: Yes Status: Acute Plan: Acute renal failure most likely secondary to dehydration -IV fluids -BUN and creatinine improving at this time -will follow up with a BMP tomorrow Qualifiers: Acute renal failure type: unspecified Qualified Code(s): N17.9 - Acute kidney failure, unspecified - Plan Awaiting clinical improvement at this time Discharge Plan: Home Plan to discharge in: 48 Hours - Code Status/Comfort Care Code Status Assessed: Yes Critical Care: No
[2018-10-22] MEDS: ENOXAPARIN 40 MG/0.4 ML SQ SCH (16:06)
[2018-10-23] MEDS: PIPER/TAZO/NS 3.375gm 3.375 GM/100 ML BAG IVPB SCH ×2 (01:00→10:33)
[2018-10-23] MEDS: METRONIDAZOLE 500mg IVPB 500 MG/100 ML BAG IV SCH ×2 (01:26→10:32)
[2018-10-23 05:03] LABS: Absolute Lymphocytes (CBC) 1.4 K/uL (0.7-4.9); Absolute Monocytes 1.1 K/uL (0.1-1.3); Absolute Neutrophil 6.2 K/uL (1.8-8.0); Basophils % 0.6 % (0-1.3); Eosinophils % 4.3 % (0-4.4); Hematocrit 37.9 % (39.6-49.0); Lymphocytes % 15.7 % (15.3-44.8); MCV 92.3 fL (80-100); MPV 10.2 fL (7.6-11.3); Monocytes % 11.6 % (3.3-12.3); RBC Red Blood Cell Count 4.11 M/uL (4.33-5.43)
[2018-10-23 05:16] LABS: BUN Blood Urea Nitrogen 11 mg/dL (7-18); Bicarbonate 26 mmol/L (21-32); Glucose Level 88 mg/dL (74-106); Magnesium 2.3 mg/dL (1.8-2.4); Potassium 4.1 mmol/L (3.5-5.1); Sodium Level 143 mmol/L (136-145)
[2018-10-23] MEDS: HOME MED 1 EA UNK (Mirabegron [Myrbetriq] 1 TAB) PO SCH (09:00)
[2018-10-23] MEDS: LOSARTAN POTASSIUM 50 MG TABLET PO SCH (10:33)
[2018-10-23] MEDS: TAMSULOSIN 0.4 MG SR CAP PO SCH (10:33)
[2018-10-23] MEDS: HYDROCODONE/APAP 7.5/325 MG TAB PO PRN ×2 (10:34→14:04)
[2018-10-23] MEDS: FINASTERIDE 5 MG TAB PO SCH (10:34)
[2018-10-23 12:37] VITALS: BP 121/61; TEMP 98.4
[2018-10-23 13:16] VITALS: O2SAT 95
--- NOTE | 2018-10-23 16:04 | PN ---
Please note, I have been following the patient telephonically, as I have been out of town over the 3 days and managing surgically his care. The patient is awake, alert, having bowel movements. Pa in is much better. He is tolerating diet. Physical Examination: Vital Signs: Stable. He is afebrile. White count is normal. There is no left shift. DAMIEN is puttin g out serosanguineous fluid, greater than 40 cc q.12 hours. Abdomen: Benign. Assessment: Status post laparoscopic appendectomy for perforated appendicitis. Recommendations: The patient cleared for discharge. Discharge instructions given. Will follow up w ith me in 1 week. Antibiotics were given. Discussed the case with Dr. Mcallister. JOHNY/OLGA Voice ID: [id number] Report ID: [id number]
--- NOTE | 2018-10-23 17:54 | P.DS ---
Admission Date: 10/18/18 Discharge Date: 10/23/18 Primary Care Provider: None Disposition: ROUTINE DISCHARGE Discharge Condition: GOOD Reason for Admission: Abdominal pain Consultations: General surgery Procedures: Expiratory laparotomy with appendectomy - Problems (1) Appendicitis Onset Date: 10/19/18 Status: Acute (2) ARF (acute renal failure) Status: Acute Qualifiers: Acute renal failure type: unspecified Qualified Code(s): N17.9 - Acute kidney failure, unspecified Brief History of Present Illness: Patient is a 58yo who was admitted to the hospital with abdominal pain. Patient' s pain was in the right lower quadrant. Patient had guarding and rebound tenderness. This is been going on for the last 24 hr. In the ER his workup revealed appendicitis. Patient will be started on antibiotics and medically is stable for surgical intervention. He does not have any hypertension or diabetes. He has no heart disease. He is low risk for cardiopulmonary complications. Hospital Course: Overall during the hospital stay patient remained stable Patient was admitted to the hospital for acute appendicitis with perforated pain along with peritonitis. General surgery was consulted. Patient was taken straight to the OR on admission. Patient had expiratory laparotomy with appendectomy done here in the hospital. Patient tolerated the procedure well and did well overall postprocedure as well. Patient had slow recovery due to the extensive this is nature of his appendicitis along with perforation. Patient did passed gas and was having a bowel movement here in the hospital and thus his diet was advanced as tolerated. Patient tolerated GI soft diet here in the hospital and was having no abdominal pain and thus was discharged home under stable condition. Patient was asked to follow up with general surgery in about 1-2 days post discharge. Patient was also given a prescription for Cipro and Flagyl to be taken for total of 10 days post discharge. Patient was encouraged for ambulation along with high-fiber diet to help with the recovery process. Patient and family demonstrated understanding and thus patient was discharged home under stable condition Vital Signs/Physical Exam: Temp Pulse Resp BP Pulse Ox 98.4 F 70 18 121/61 95 10/23/18 12:00 10/23/18 12:00 10/23/18 12:00 10/23/18 12:00 10/23/18 12:00 General: Alert, In no apparent distress HEENT: Atraumatic, PERRLA, EOMI Neck: Supple, JVD not distended Respiratory: Clear to auscultation bilaterally, Normal air movement Cardiovascular: Regular rate/rhythm, Normal S1 S2 Gastrointestinal: Normal bowel sounds, No tenderness Musculoskeletal: No tenderness Integumentary: No rashes Neurological: Normal speech, Normal tone, Normal affect Lymphatics: No axilla or inguinal lymphadenopathy Laboratory Data at Discharge: WBC 9.2 K/uL (4.3-10.9) 10/23/18 03:39 Hgb 12.7 g/dL (13.6-17.9) L 10/23/18 03:39 Hct 37.9 % (39.6-49.0) L 10/23/18 03:39 Plt Count 236 K/uL (152-406) D 10/23/18 03:39 PT 13.4 SECONDS (9.5-12.5) H 10/19/18 05:31 INR 1.13 10/19/18 05:31 APTT 32.2 SECONDS (24.3-36.9) 10/19/18 05:31 Sodium 143 mmol/L (136-145) 10/23/18 03:39 Potassium 4.1 mmol/L (3.5-5.1) 10/23/18 03:39 BUN 11 mg/dL (7-18) 10/23/18 03:39 Creatinine 0.80 mg/dL (0.55-1.3) 10/23/18 03:39 Glucose 88 mg/dL (74-106) 10/23/18 03:39 Phosphorus 3.0 mg/dL (2.5-4.9) 10/19/18 05:31 Magnesium 2.3 mg/dL (1.8-2.4) 10/23/18 03:39 Total Bilirubin 1.5 mg/dL (0.2-1.0) H 10/19/18 05:31 AST 9 U/L (15-37) L 10/19/18 05:31 ALT 19 U/L (12-78) 10/19/18 05:31 Alkaline Phosphatase 69 U/L (45-117) 10/19/18 05:31 Lipase 116 U/L (73-393) 10/18/18 18:40 Home Medications: Finasteride 1 tab PO DAILY 10/19/18 Losartan Potassium [Cozaar] 25 mg PO DAILY 10/19/18 Mirabegron [Myrbetriq] 1 tab PO DAILY 10/19/18 Tamsulosin [Flomax*] 1 tab PO DAILY 10/19/18 Ciprofloxacin HCl [Cipro 500 MG Tablet] 500 mg PO BID #20 tab 10/23/18 Codeine/APAP [Tylenol W/Codeine #3 tab] 1 tab PO Q4H #40 tab 10/23/18 metroNIDAZOLE [Flagyl] 500 mg PO Q6H #40 tablet 10/23/18 New Medications: Ciprofloxacin HCl [Cipro 500 MG Tablet] 500 mg PO BID #20 tab Codeine/APAP [Tylenol W/Codeine #3 tab] 1 tab PO Q4H #40 tab metroNIDAZOLE [Flagyl] 500 mg PO Q6H #40 tablet Patient Discharge Instructions: may shower. keep wound clean and dry. Record DAMIEN q 12 hr bring record to office. teach family Diet: Low sodium Activity: No lifting more than 10 lbs Followup: Derrick Gonzalez MD [ACTIVE - CAN ADMIT] - 1 Week
== END 2018-10-23 14:40 | disposition home or self-care (01) | DRG 339 ==
LOC: ER 18:04 → EDSEX 18:04 → ERHOLD 21:33 → 4TH 22:04
PROVIDERS: ADMIT Hospitalist; ATTEND Family Medicine
PROC: 0DTJ4ZZ Resection of Appendix, Percutaneous Endoscopic Approach (ICD-10-PCS; principal; 2018-10-18)
DX: K35.32 Acute appendicitis with perforation, localized peritonitis, and gangrene, without abscess (principal); N17.9 Acute kidney failure, unspecified; K38.1 Appendicular concretions; E86.0 Dehydration; I10 Essential (primary) hypertension; F32.9 Major depressive disorder, single episode, unspecified; N40.0 Benign prostatic hyperplasia without lower urinary tract symptoms; F17.210 Nicotine dependence, cigarettes, uncomplicated
CPT/HCPCS: 36415; 74177; 80048; 80053; 80076; 81003; 83690; 83735; 84100; 85025; 85610; 85730; 88304; 93005; 96361; 96365; 96366; 96375; 99285; J0690; J1170; J1650; J2250; J2405; J2543; J2704; J2710; J3010; J7030; Q9967